=== PATIENT | female | born 1940 | race Caucasian/White ===

== ENCOUNTER → 2021-08-16 | Outpatient (CLI) | payer MEDICARE, MEDICAID ==
[~2021-08-16] VITALS: Ht 160 cm; Wt 68.0 kg
[~2021-08-16] MED LIST: CHOL200031 PO; CITA20TA9 PO; CLOP75TA28 PO; DIPH-506 PO; FURO1TAB33 PO; LACT10SO70 PO; LEVO100T3 PO; MULT-681 PO; NAPR500T31 PO; RALO60TA10 PO; SIMV-13 PO; VIT B12 PO; ZOLP5TAB PO
[2021-08-16 12:03] LABS: Urine Blood TRACE /uL (Negative); Urine Specific Gravity 1.012 (1.001-1.035)
[2021-08-16 12:38] LABS: Basophils # (auto) 0.1 10 ^3/uL (0-0.2); Basophils % (auto) 0.6 % (0.0-2.0); Eosinophils # (auto) 0.6 10 ^3/uL (0-0.8); Eosinophils % (auto) 6.9 % (0.0-7.0); Hematocrit 39.2 % (36.0-46.0); Hemoglobin 12.9 g/dL (12.2-16.2); Lymphocytes # (auto) 1.4 10 ^3/uL (0.4-5.4); Lymphocytes % (auto) 15.9 % (10.0-50.0); Mean Corpuscular Hemoglobin 30.2 pg (28.0-32.0); Mean Corpuscular Hgb Conc. 32.8 g/dL (32.0-36.0); Mean Corpuscular Volume 92.2 fL (80.0-100.0); Monocytes # (auto) 0.7 10 ^3/uL (0-1.3); Monocytes % (auto) 7.4 % (0.0-12.0); Neutrophils # (auto) 6.2 10 ^3/uL (1.6-8.6); Neutrophils % (auto) 69.2 % (37.0-80.0); Red Blood Cells 4.26 10^6/uL (4.0-5.20); Red Cell Distribution Width 14.1 % (11.8-14.3); White Blood Cell 8.9 10^3/uL (4.4-10.8)
[2021-08-16 13:00] LABS: Potassium 4.7 mmol/L (3.5-5.1)
[2021-08-16 13:18] LABS: Albumin 3.3 g/dL (3.4-5.0); BUN/Creatinine Ratio 15.5; Bilirubin, Total 0.6 mg/dL (0.2-1.0); Calcium 8.8 mg/dL (8.5-10.1); Total Protein 6.7 g/dL (6.4-8.2)
== END | disposition home or self-care (01) ==
LOC: SUR 09:26 → GI 08-17 12:26 → EDSTATUS 08-17 14:00
PROVIDERS: ATTEND Internal Medicine Gastroenterology
DX: R15.9 Full incontinence of feces (principal); R10.13 Epigastric pain; Z20.822 Contact with and (suspected) exposure to COVID-19; M81.0 Age-related osteoporosis without current pathological fracture; F32.9 Major depressive disorder, single episode, unspecified; E03.9 Hypothyroidism, unspecified; Z85.818 Personal history of malignant neoplasm of other sites of lip, oral cavity, and pharynx
CPT/HCPCS: 36415; 80053; 81003; 85025; U0003

== ENCOUNTER → 2021-09-14 | Day surgery (SDC) | payer MEDICARE, MEDICAID ==
[2021-09-12 14:18] LABS: Basophils # (auto) 0.1 10 ^3/uL (0-0.2); Basophils % (auto) 0.7 % (0.0-2.0); Eosinophils # (auto) 0.4 10 ^3/uL (0-0.8); Eosinophils % (auto) 5.4 % (0.0-7.0); Hematocrit 37.9 % (36.0-46.0); Hemoglobin 12.6 g/dL (12.2-16.2); Lymphocytes # (auto) 1.1 10 ^3/uL (0.4-5.4); Mean Corpuscular Hemoglobin 30.6 pg (28.0-32.0); Mean Corpuscular Hgb Conc. 33.2 g/dL (32.0-36.0); Mean Corpuscular Volume 92.2 fL (80.0-100.0); Monocytes # (auto) 0.6 10 ^3/uL (0-1.3); Monocytes % (auto) 7.8 % (0.0-12.0); Neutrophils # (auto) 5.9 10 ^3/uL (1.6-8.6); Neutrophils % (auto) 72.1 % (37.0-80.0); Nucleated Red Blood Cells % 0.1 %; Red Blood Cells 4.11 10^6/uL (4.0-5.20); White Blood Cell 8.2 10^3/uL (4.4-10.8)
[2021-09-12 14:33] LABS: INR 0.99 (0.9-1.15); Partial Thromboplastin Time 27.8 sec (23.6-33.0)
[2021-09-12 14:52] LABS: Albumin 3.3 g/dL (3.4-5.0); BUN/Creatinine Ratio 14.7; Bilirubin, Total 0.4 mg/dL (0.2-1.0); Calcium 8.9 mg/dL (8.5-10.1); Total Protein 6.7 g/dL (6.4-8.2)
[~2021-09-14] VITALS: Ht 160 cm; Wt 68.0 kg
[~2021-09-14] MED LIST changes: +DexAMETHasone SOD PHOS 10MG/1ML VIAL INJ ONE; -FURO1TAB33 PO; +LIDOCAINE VISCOUS 2% 15ML UD ONE; +MIDAZOLAM HCL 2MG/2ML 2ml VIAL (1mg/ml) ONE; -NAPR500T31 PO; +ONDANSETRON HCL 4 MG/2 ML VIAL ONE; +PROPOFOL 10 MG/ML 20 ML IV ONE; -SIMV-13 PO; +SODIUM CHLORIDE LOCK 10 ML ONE; -ZOLP5TAB PO; +fentaNYL CITRATE 100 MCG/2 ML VL ONE
[2021-09-14 11:45] VITALS: BP 163/63
== END | disposition home or self-care (01) ==
LOC: GI 09:01
PROVIDERS: ATTEND Internal Medicine Gastroenterology
DX: R13.10 Dysphagia, unspecified (principal); K29.50 Unspecified chronic gastritis without bleeding; K22.2 Esophageal obstruction; I13.0 Hypertensive heart and chronic kidney disease with heart failure and stage 1 through stage 4 chronic kidney disease, or unspecified chronic kidney disease; N18.4 Chronic kidney disease, stage 4 (severe); I20.9 Angina pectoris, unspecified; E03.9 Hypothyroidism, unspecified; F32.A Depression, unspecified; J44.9 Chronic obstructive pulmonary disease, unspecified; F41.9 Anxiety disorder, unspecified; F17.200 Nicotine dependence, unspecified, uncomplicated; E78.5 Hyperlipidemia, unspecified; Z86.73 Personal history of transient ischemic attack (TIA), and cerebral infarction without residual deficits; Z85.818 Personal history of malignant neoplasm of other sites of lip, oral cavity, and pharynx; Z90.89 Acquired absence of other organs; Z98.890 Other specified postprocedural states; Z79.899 Other long term (current) drug therapy; Z91.048 Other nonmedicinal substance allergy status; Z20.822 Contact with and (suspected) exposure to COVID-19; Z82.5 Family history of asthma and other chronic lower respiratory diseases
CPT/HCPCS: 36415; 43239; 43450; 80053; 85025; 85610; 85730; 88305; 88342; J1100; J2250; J2405; J2704; J3010; J7030; U0003; G0500

== ENCOUNTER 2023-04-15 16:41 | Emergency (ER) | payer MEDICARE, MEDICAID ==
[~2023-04-15] VITALS: Ht 160 cm; Wt 64.8 kg
[~2023-04-15 16:41] MED LIST changes: -DIPH-506 PO; +DIPH-562 PO; -DexAMETHasone SOD PHOS 10MG/1ML VIAL INJ ONE; -LIDOCAINE VISCOUS 2% 15ML UD ONE; -MIDAZOLAM HCL 2MG/2ML 2ml VIAL (1mg/ml) ONE; -ONDANSETRON HCL 4 MG/2 ML VIAL ONE; -PROPOFOL 10 MG/ML 20 ML IV ONE; -SODIUM CHLORIDE LOCK 10 ML ONE; -fentaNYL CITRATE 100 MCG/2 ML VL ONE
[2023-04-15 18:41] LABS: Basophils # (auto) 0.1 10 ^3/uL (0-0.2); Basophils % (auto) 0.5 % (0.0-2.0); Eosinophils # (auto) 0.5 10 ^3/uL (0-0.8); Eosinophils % (auto) 4.8 % (0.0-7.0); Hematocrit 36.8 % (36.0-46.0); Hemoglobin 11.8 g/dL (12.2-16.2); Lymphocytes # (auto) 1.3 10 ^3/uL (0.4-5.4); Lymphocytes % (auto) 12.5 % (10.0-50.0); Mean Corpuscular Volume 93.5 fL (80.0-100.0); Monocytes # (auto) 0.8 10 ^3/uL (0-1.3); Monocytes % (auto) 7.7 % (0.0-12.0); Neutrophils # (auto) 7.6 10 ^3/uL (1.6-8.6); Neutrophils % (auto) 74.5 % (37.0-80.0); Red Blood Cells 3.93 10^6/uL (4.0-5.20); Red Cell Distribution Width 14.2 % (11.8-14.3); White Blood Cell 10.1 10^3/uL (4.4-10.8)
[2023-04-15 18:52] LABS: Alanine Aminotransferase 16 U/L (7-40); Albumin 3.8 g/dL (3.2-4.8); Alkaline Phosphatase 53 U/L (46-116); Anion Gap 8 (5-15); Aspartate Aminotransferase 22 U/L (13-40); BUN/Creatinine Ratio 15.3 (10.0-20.0); Blood Urea Nitrogen 33 mg/dL (9-23); Calcium 9.2 mg/dL (8.5-10.1); Carbon Dioxide 25 mmol/L (20-30); Chloride 112 mmol/L (98-107); Glucose 84 mg/dL (74-106); Potassium 4.4 mmol/L (3.5-5.1); Sodium 145 mmol/L (136-145)
[2023-04-15 18:53] LABS: Bilirubin, Total 0.4 mg/dL (0.2-1.0); Total Protein 6.2 g/dL (5.7-8.2)
[2023-04-15] MEDS ORDERED: DexAMETHasone SOD PHOS 10MG/1ML VIAL INJ IM ONE (20:15)
[2023-04-15] MEDS ORDERED: cefTRIAXone SOD 1,000 MG VL IM ONE (20:15)
[2023-04-15] MEDS ORDERED: AMOX875T4 PO (20:49)
[2023-04-15 21:02] VITALS: BP 189/77; PULSE 88; RESP 22; TEMP 98.7; O2SAT 95
== END 2023-04-15 21:04 | disposition home or self-care (01) ==
LOC: ER 16:41
DX: J18.9 Pneumonia, unspecified organism (principal); F17.210 Nicotine dependence, cigarettes, uncomplicated; J44.9 Chronic obstructive pulmonary disease, unspecified; F32.9 Major depressive disorder, single episode, unspecified; E78.5 Hyperlipidemia, unspecified; I11.0 Hypertensive heart disease with heart failure; I50.89 Other heart failure; Z98.890 Other specified postprocedural states
CPT/HCPCS: 36415; 71046; 80053; 83605; 83880; 84484; 85025; 87040; 93005; 96372; 99285; J0696; J1100

== ENCOUNTER → 2023-10-17 | Day surgery (SDC) | payer MEDICARE, MEDICAID ==
[2023-10-10 12:11] LABS: Basophils # (auto) 0 10 ^3/uL (0-0.2); Basophils % (auto) 0.4 % (0.0-2.0); Eosinophils # (auto) 0.4 10 ^3/uL (0-0.8); Eosinophils % (auto) 4.5 % (0.0-7.0); Hematocrit 34.5 % (36.0-46.0); Hemoglobin 11.4 g/dL (12.2-16.2); Lymphocytes # (auto) 1.6 10 ^3/uL (0.4-5.4); Lymphocytes % (auto) 18.1 % (10.0-50.0); Mean Corpuscular Hemoglobin 30.8 pg (28.0-32.0); Mean Corpuscular Hgb Conc. 33.2 g/dL (32.0-36.0); Monocytes # (auto) 0.7 10 ^3/uL (0-1.3); Monocytes % (auto) 7.5 % (0.0-12.0); Neutrophils # (auto) 6.1 10 ^3/uL (1.6-8.6); Neutrophils % (auto) 69.5 % (37.0-80.0); Red Blood Cells 3.71 10^6/uL (4.0-5.20); Red Cell Distribution Width 14.9 % (11.8-14.3); White Blood Cell 8.7 10^3/uL (4.4-10.8)
[2023-10-10 12:22] LABS: INR 0.95 (0.9-1.15); Partial Thromboplastin Time 30.7 SEC (24.5-34.5)
[2023-10-10 12:31] LABS: Urine Bacteria FEW /hpf (None Seen); Urine Blood Negative /uL (Negative); Urine Clarity Clear (Clear); Urine Color Light-Yellow (Yellow); Urine Hyaline Cast FEW /lpf (0 - 2); Urine Mucus FEW (None Seen); Urine Protein, UAD 1+ (Negative); Urine Specific Gravity 1.013 (1.001-1.035); Urine Urobilinogen Normal (Negative); Urine WBC 3 /hpf (0 - 5)
[2023-10-10 12:51] LABS: Alanine Aminotransferase 12 U/L (7-40); Albumin 3.9 g/dL (3.2-4.8); Alkaline Phosphatase 60 U/L (46-116); Anion Gap 10 (5-15); Aspartate Aminotransferase 19 U/L (13-40); BUN/Creatinine Ratio 14.3 (10.0-20.0); Bilirubin, Total 0.5 mg/dL (0.2-1.0); Blood Urea Nitrogen 36 mg/dL (9-23); Carbon Dioxide 17 mmol/L (20-30); Chloride 113 mmol/L (98-107); Glucose 88 mg/dL (74-106); Potassium 5.3 mmol/L (3.5-5.1); Sodium 140 mmol/L (136-145); Total Protein 6.2 g/dL (5.7-8.2)
[~2023-10-17] VITALS: Ht 157.5 cm; Wt 59.9 kg
[~2023-10-17] MED LIST changes: +ALBU0.08 HHN; +AMLO1TAB23 PO; -DIPH-562 PO; +DexAMETHasone SOD PHOS 10MG/1ML VIAL INJ ONE; -LACT10SO70 PO; -LEVO100T3 PO; +LEVO112C3 PO; +MIDAZOLAM HCL 2MG/2ML 2ml VIAL (1mg/ml) ONE; -MULT-681 PO; +PROPOFOL 10 MG/ML 20 ML IV ONE; -VIT B12 PO; +fentaNYL CITRATE 100 MCG/2 ML VL ONE
[2023-10-17 12:15] VITALS: TEMP 97.6; O2SAT 99
[2023-10-17 12:45] VITALS: BP 147/51; PULSE 62; RESP 15; O2SAT 96
== END | disposition home or self-care (01) ==
LOC: GI 09:04
PROVIDERS: ATTEND Internal Medicine Gastroenterology
DX: R13.10 Dysphagia, unspecified (principal); K29.50 Unspecified chronic gastritis without bleeding; K21.9 Gastro-esophageal reflux disease without esophagitis; K44.9 Diaphragmatic hernia without obstruction or gangrene; I25.10 Atherosclerotic heart disease of native coronary artery without angina pectoris; I25.2 Old myocardial infarction; I12.9 Hypertensive chronic kidney disease with stage 1 through stage 4 chronic kidney disease, or unspecified chronic kidney disease; N18.4 Chronic kidney disease, stage 4 (severe); J44.9 Chronic obstructive pulmonary disease, unspecified; E06.3 Autoimmune thyroiditis; E89.0 Postprocedural hypothyroidism; M81.0 Age-related osteoporosis without current pathological fracture; F32.A Depression, unspecified; Z79.890 Hormone replacement therapy; Z79.899 Other long term (current) drug therapy; Z85.89 Personal history of malignant neoplasm of other organs and systems; Z98.84 Bariatric surgery status; Z87.11 Personal history of peptic ulcer disease; Z86.73 Personal history of transient ischemic attack (TIA), and cerebral infarction without residual deficits; Z98.890 Other specified postprocedural states
CPT/HCPCS: 36415; 43239; 43248; 80053; 81001; 85025; 85610; 85730; 88305; 88312; 88342; J1100; J2250; J2704; J3010; J7030

== ENCOUNTER 2023-10-24 08:15 | Day surgery (SDC) | payer MEDICARE, MEDICAID ==
[2023-10-23 15:04] LABS: Basophils # (auto) 0 10 ^3/uL (0-0.2); Basophils % (auto) 0.6 % (0.0-2.0); Eosinophils # (auto) 0.5 10 ^3/uL (0-0.8); Eosinophils % (auto) 5.7 % (0.0-7.0); Hematocrit 35.5 % (36.0-46.0); Hemoglobin 11.4 g/dL (12.2-16.2); Lymphocytes # (auto) 1.1 10 ^3/uL (0.4-5.4); Lymphocytes % (auto) 13.6 % (10.0-50.0); Mean Corpuscular Hemoglobin 29.6 pg (28.0-32.0); Mean Corpuscular Hgb Conc. 32.1 g/dL (32.0-36.0); Mean Corpuscular Volume 92.1 fL (80.0-100.0); Monocytes # (auto) 0.7 10 ^3/uL (0-1.3); Neutrophils # (auto) 5.7 10 ^3/uL (1.6-8.6); Neutrophils % (auto) 71.1 % (37.0-80.0); Red Blood Cells 3.86 10^6/uL (4.0-5.20); Red Cell Distribution Width 14.7 % (11.8-14.3)
[2023-10-23 15:19] LABS: INR 0.94 (0.9-1.15); Partial Thromboplastin Time 27.3 SEC (24.5-34.5)
[2023-10-23 15:21] LABS: Alanine Aminotransferase < 9 U/L (7-40); Albumin 3.8 g/dL (3.2-4.8); Alkaline Phosphatase 63 U/L (46-116); Anion Gap 6 (5-15); Aspartate Aminotransferase 21 U/L (13-40); BUN/Creatinine Ratio 14.4 (10.0-20.0); Bilirubin, Total 0.3 mg/dL (0.2-1.0); Blood Urea Nitrogen 39 mg/dL (9-23); Calcium 9.2 mg/dL (8.5-10.1); Carbon Dioxide 22 mmol/L (20-30); Chloride 112 mmol/L (98-107); Glucose 102 mg/dL (74-106); Potassium 5.1 mmol/L (3.5-5.1); Sodium 140 mmol/L (136-145); Total Protein 6.7 g/dL (5.7-8.2)
[~2023-10-24] VITALS: Ht 157.5 cm; Wt 59.9 kg
[~2023-10-24 08:15] MED LIST changes: -DexAMETHasone SOD PHOS 10MG/1ML VIAL INJ ONE; -MIDAZOLAM HCL 2MG/2ML 2ml VIAL (1mg/ml) ONE; -PROPOFOL 10 MG/ML 20 ML IV ONE; -fentaNYL CITRATE 100 MCG/2 ML VL ONE
[2023-10-24 08:17] LABS: Urine Bacteria None Seen /hpf (None Seen)
[2023-10-24 08:46] LABS: Urine Blood TRACE /uL (Negative); Urine Clarity Clear (Clear); Urine Color Light-Yellow (Yellow); Urine Protein, UAD TRACE (Negative); Urine Specific Gravity 1.009 (1.001-1.035); Urine Urobilinogen Normal (Negative); Urine WBC 8 /hpf (0 - 5)
[2023-10-24] MEDS ORDERED: LIDOCAINE VISCOUS 2% 15ML UD ONE (09:53)
[2023-10-24] MEDS ORDERED: fentaNYL CITRATE 100 MCG/2 ML VL ONE (09:55)
[2023-10-24] MEDS ORDERED: MIDAZOLAM HCL 2MG/2ML 2ml VIAL (1mg/ml) ONE (09:55)
[2023-10-24] MEDS ORDERED: PROPOFOL 10 MG/ML 20 ML IV ONE (10:05)
[2023-10-24] MEDS ORDERED: DexAMETHasone SOD PHOS 10MG/1ML VIAL INJ ONE (10:05)
[2023-10-24 10:10] VITALS: PULSE 62; RESP 14; TEMP 97; O2SAT 97
[2023-10-24 10:55] VITALS: BP 174/58; PULSE 58; RESP 17
== END 2023-10-24 11:05 | disposition home or self-care (01) ==
LOC: GI 08:15
PROVIDERS: ATTEND Internal Medicine Gastroenterology
DX: R13.10 Dysphagia, unspecified (principal); K29.70 Gastritis, unspecified, without bleeding; K22.10 Ulcer of esophagus without bleeding; E89.0 Postprocedural hypothyroidism; M81.0 Age-related osteoporosis without current pathological fracture; I25.2 Old myocardial infarction; F32.A Depression, unspecified; F17.210 Nicotine dependence, cigarettes, uncomplicated; Z79.890 Hormone replacement therapy; Z79.899 Other long term (current) drug therapy; Z85.89 Personal history of malignant neoplasm of other organs and systems; Z90.3 Acquired absence of stomach [part of]; Z98.890 Other specified postprocedural states
CPT/HCPCS: 36415; 43235; 80053; 81001; 85025; 85610; 85730; J1100; J2250; J2704; J3010; J7030

== ENCOUNTER → 2023-11-04 | Outpatient (CLI) | payer MEDICARE, MEDICAID ==
[2023-11-04 09:16] LABS: Basophils # (auto) 0.1 10 ^3/uL (0-0.2); Basophils % (auto) 0.7 % (0.0-2.0); Eosinophils # (auto) 0.7 10 ^3/uL (0-0.8); Eosinophils % (auto) 6.4 % (0.0-7.0); Hematocrit 36.6 % (36.0-46.0); Hemoglobin 11.7 g/dL (12.2-16.2); Lymphocytes # (auto) 1.1 10 ^3/uL (0.4-5.4); Lymphocytes % (auto) 10.5 % (10.0-50.0); Mean Corpuscular Hemoglobin 30.1 pg (28.0-32.0); Mean Corpuscular Volume 94.2 fL (80.0-100.0); Monocytes # (auto) 0.6 10 ^3/uL (0-1.3); Monocytes % (auto) 6.2 % (0.0-12.0); Neutrophils % (auto) 76.2 % (37.0-80.0); Red Blood Cells 3.88 10^6/uL (4.0-5.20); Red Cell Distribution Width 15.5 % (11.8-14.3); White Blood Cell 10.5 10^3/uL (4.4-10.8)
[2023-11-04 10:32] LABS: Albumin 3.9 g/dL (3.2-4.8); Alkaline Phosphatase 66 U/L (46-116); Anion Gap 7 (5-15); Aspartate Aminotransferase 12 U/L (13-40); BUN/Creatinine Ratio 13.7 (10.0-20.0); Blood Urea Nitrogen 31 mg/dL (9-23); Calcium 9.8 mg/dL (8.5-10.1); Carbon Dioxide 22 mmol/L (20-30); Chloride 116 mmol/L (98-107); Glucose 88 mg/dL (74-106); LDL Cholesterol 113 mg/dL (< 100); Potassium 5.5 mmol/L (3.5-5.1); Sodium 145 mmol/L (136-145); Triglycerides 85 mg/dL (< 150)
[2023-11-04 10:33] LABS: Bilirubin, Total 0.3 mg/dL (0.2-1.0); Cholesterol 189 mg/dL (< 200); HDL Cholesterol 58 mg/dL (40-59); Total Protein 6.5 g/dL (5.7-8.2)
[2023-11-04 10:52] LABS: Alanine Aminotransferase < 9 U/L (7-40)
[2023-11-06 07:07] LABS: Urine Bacteria None Seen /hpf (None Seen)
[2023-11-06 07:44] LABS: Urine Blood Negative /uL (Negative); Urine Clarity Clear (Clear); Urine Color Colorless (Yellow); Urine Protein, UAD 1+ (Negative); Urine Specific Gravity 1.013 (1.001-1.035); Urine Urobilinogen Normal (Negative); Urine WBC 9 /hpf (0 - 5); Urine pH 5.5 (5.0-9.0)
== END | disposition home or self-care (01) ==
LOC: LAB 08:44
PROVIDERS: ATTEND Internal Medicine
DX: Z13.1 Encounter for screening for diabetes mellitus (principal); I12.9 Hypertensive chronic kidney disease with stage 1 through stage 4 chronic kidney disease, or unspecified chronic kidney disease; N18.4 Chronic kidney disease, stage 4 (severe); R13.10 Dysphagia, unspecified
CPT/HCPCS: 36415; 80053; 80061; 81001; 83036; 84439; 84443; 85025

== ENCOUNTER 2024-02-28 11:16 | Inpatient (IN) | payer MEDICARE, MEDICAID ==
[~2024-02-28] VITALS: Ht 160 cm; Wt 70.5 kg
[~2024-02-28 11:16] MED LIST changes: +CITA-73 PO
[2024-02-28 13:59] LABS: Basophils # (auto) 0 10 ^3/uL (0-0.2); Basophils % (auto) 0.3 % (0.0-2.0); Eosinophils # (auto) 0.1 10 ^3/uL (0-0.8); Hematocrit 36.7 % (36.0-46.0); Hemoglobin 11.9 g/dL (12.2-16.2); Lymphocytes # (auto) 0.5 10 ^3/uL (0.4-5.4); Lymphocytes % (auto) 4.1 % (10.0-50.0); Mean Corpuscular Hemoglobin 30.3 pg (28.0-32.0); Mean Corpuscular Hgb Conc. 32.3 g/dL (32.0-36.0); Mean Corpuscular Volume 93.7 fL (80.0-100.0); Monocytes # (auto) 0.7 10 ^3/uL (0-1.3); Monocytes % (auto) 5.7 % (0.0-12.0); Neutrophils # (auto) 10.2 10 ^3/uL (1.6-8.6); Neutrophils % (auto) 88.9 % (37.0-80.0); Platelet Count (auto) 236 10^3/uL (140-450); Red Blood Cells 3.92 10^6/uL (4.0-5.20); Red Cell Distribution Width 14.8 % (11.8-14.3); White Blood Cell 11.5 10^3/uL (4.4-10.8)
[2024-02-28 14:21] LABS: Alanine Aminotransferase 11 U/L (7-40); Albumin 3.9 g/dL (3.2-4.8); Alkaline Phosphatase 67 U/L (46-116); Anion Gap 5 (5-15); Aspartate Aminotransferase 16 U/L (13-40); BUN/Creatinine Ratio 12.2 (10.0-20.0); Bilirubin, Total 0.5 mg/dL (0.2-1.0); Blood Urea Nitrogen 39 mg/dL (9-23); Calcium 9.8 mg/dL (8.7-10.4); Carbon Dioxide 22 mmol/L (20-30); Chloride 111 mmol/L (98-107); Glucose 89 mg/dL (74-106); Sodium 138 mmol/L (136-145); Total Protein 6.6 g/dL (5.7-8.2)
[2024-02-28] MEDS: CALCIUM CHL 100MG/ML 500 MG in D5W 5% 100 ML IV ONE (14:30)
[2024-02-28] MEDS: DEXTROSE (50%) 50ML SYRG IV ONE (14:30)
[2024-02-28] MEDS: SODIUM BICARB 8.4% 50Meq/50ml SYR INJ IV ONE (14:30)
[2024-02-28] MEDS: InsuLIN REG 1unit/0.01ml Soln (100units/ml) IV ONE (14:30)
[2024-02-28] MEDS: SODIUM ZIRCONIUM CYCL 10 GM PAK PO ONE (14:30)
[2024-02-28 14:40] LABS: Erythrocyte Sedimentation Rate 28 mm/hr (0-20)
[2024-02-28] MEDS: ALBUTEROL SULF 2.5 MG/0.5ML(0.5%) NEB SOLN NEB ONE (15:02)
[2024-02-28] MEDS: cefTRIAXone 2GM/50ML D5W 50 ML IV ONE (16:30)
[2024-02-28 18:03] VITALS: PULSE 94; RESP 29; O2SAT 94
[2024-02-28 20:00] VITALS: PULSE 90; RESP 24; O2SAT 96
[2024-02-28] MEDS: NICOTINE 14 MG/24HR TOPICAL PATCH TD ONE (20:14)
[2024-02-28 20:38] LABS: Chloride 111 mmol/L (98-107); Potassium 4.4 mmol/L (3.5-5.1); Sodium 139 mmol/L (136-145)
[2024-02-28 20:39] LABS: Anion Gap 8 (5-15); Calcium 9.3 mg/dL (8.7-10.4); Carbon Dioxide 20 mmol/L (20-30)
[2024-02-28 20:44] LABS: Blood Urea Nitrogen 48 mg/dL (9-23); Glucose 119 mg/dL (74-106)
[2024-02-28] MEDS ORDERED: DOCUSATE SOD 100 MG CAP PO PRN (22:15)
[2024-02-28] MEDS ORDERED: HYDROcodone-ACET 5/325MG TAB PO PRN (22:15)
[2024-02-28] MEDS ORDERED: ACETAMINOPHEN 325 MG TAB PO PRN (22:15)
[2024-02-28] MEDS ORDERED: NITROGLYCERIN 0.4 MG SL TAB SL PRN (22:45)
[2024-02-28] MEDS ORDERED: MORPHINE SULFATE INJ 2 MG/ml SYRG IV PRN (22:45)
[2024-02-28 22:48] VITALS: BP 157/49; PULSE 88; RESP 22; TEMP 98.1; O2SAT 96
[2024-02-28 23:14] VITALS: O2SAT 96
[2024-02-28] MEDS: FUROSEMIDE 20 MG/2 ML VIAL IV ONE (23:16)
[2024-02-28] MEDS: DOXYCYCLINE 100MG/250ML 250 ML IV SCH (23:40)
[2024-02-28] MEDS: hydrALAZINE HCL 20 MG/ML VL IV PRN (23:57)
[2024-02-29] VITALS (12 sets, daily range): BP systolic 114–173; BP diastolic 57–66; PULSE 71–84; RESP 16–20; TEMP 98–99.1; O2SAT 90–99
[2024-02-29 03:05] LABS: Rapid Strep A Screen-Throat Negative
[2024-02-29] MEDS: SODIUM CHLOR 0.9% PF (SALINE LOCK) 10ML VIAL/SYR IV SCH (06:24)
[2024-02-29] MEDS: LEVOTHYROXINE SODIUM 112 MCG TAB PO SCH (06:25)
[2024-02-29 07:55] LABS: Basophils # (auto) 0 10 ^3/uL (0-0.2); Basophils % (auto) 0.3 % (0.0-2.0); Eosinophils # (auto) 0.1 10 ^3/uL (0-0.8); Eosinophils % (auto) 0.7 % (0.0-7.0); Hematocrit 31.9 % (36.0-46.0); Hemoglobin 10.7 g/dL (12.2-16.2); Lymphocytes # (auto) 0.5 10 ^3/uL (0.4-5.4); Lymphocytes % (auto) 4.1 % (10.0-50.0); Mean Corpuscular Hemoglobin 30.9 pg (28.0-32.0); Mean Corpuscular Hgb Conc. 33.6 g/dL (32.0-36.0); Monocytes # (auto) 0.8 10 ^3/uL (0-1.3); Monocytes % (auto) 7.5 % (0.0-12.0); Neutrophils # (auto) 9.8 10 ^3/uL (1.6-8.6); Neutrophils % (auto) 87.4 % (37.0-80.0); Nucleated Red Blood Cells % 0.1 %; Platelet Count (auto) 195 10^3/uL (140-450); Red Blood Cells 3.47 10^6/uL (4.0-5.20); Red Cell Distribution Width 14.4 % (11.8-14.3); White Blood Cell 11.2 10^3/uL (4.4-10.8)
[2024-02-29 08:43] LABS: Alanine Aminotransferase 12 U/L (7-40); Albumin 3.3 g/dL (3.2-4.8); Alkaline Phosphatase 60 U/L (46-116); Anion Gap 6 (5-15); Aspartate Aminotransferase 18 U/L (13-40); BUN/Creatinine Ratio 12.7 (10.0-20.0); Bilirubin, Total 0.3 mg/dL (0.2-1.0); Blood Urea Nitrogen 42 mg/dL (9-23); Carbon Dioxide 23 mmol/L (20-30); Chloride 109 mmol/L (98-107); Glucose 102 mg/dL (74-106); Potassium 4.7 mmol/L (3.5-5.1); Sodium 138 mmol/L (136-145); Total Protein 5.6 g/dL (5.7-8.2)
[2024-02-29] MEDS: cefTRIAXone 1GM/50ML D5W 50 ML IV SCH (09:10)
[2024-02-29] MEDS: FUROSEMIDE 20 MG/2 ML VIAL IV SCH (09:10)
[2024-02-29] MEDS: FAMOTIDINE (10MG/ML) 2ML VL IV SCH (09:15)
[2024-02-29] MEDS: CARVEDILOL 3.125 MG TAB PO SCH (09:16)
[2024-02-29] MEDS: ASPirin 81 mg TAB PO SCH (09:16)
[2024-02-29 11:47] LABS: Urine Bacteria None Seen /hpf (None Seen)
[2024-02-29 12:11] LABS: Protein, Urine 46.1 mg/dL (0.0-11.9)
[2024-02-29 12:13] LABS: Creatinine, Urine 29.2 mg/dL (30.0-125.0)
[2024-02-29 12:15] LABS: Amphetamine Screen, Urine Neg (NEGATIVE); Barbiturate Scree,Urine Neg (NEGATIVE); Benzodiazephine Screen, Urine Neg (NEGATIVE); Cannabinoid Screen, Urine Neg (NEGATIVE); Cocaine Screen, Urine Neg (NEGATIVE); Opiate Scree,Urine Neg (NEGATIVE); Phencyclidine Screen, Urine Neg (NEGATIVE)
[2024-02-29 12:16] LABS: Urine Blood 1+ /uL (Negative); Urine Clarity Clear (Clear); Urine Protein, UAD 1+ (Negative); Urine Specific Gravity 1.008 (1.001-1.035); Urine Urobilinogen Normal (Negative); Urine WBC 2 /hpf (0 - 5)
[2024-02-29 12:18] LABS: Urine Color Light-Yellow (Yellow)
[2024-02-29] MEDS: SOD CHL 0.45% 1,000 ML IV ONE (16:22)
[2024-02-29] MEDS: ACETAMINOPHEN 500 MG TAB PO PRN (17:14)
[2024-02-29 18:59] LABS: LDL Cholesterol 88 mg/dL (< 100); Triglycerides 77 mg/dL (< 150)
[2024-02-29 19:01] LABS: Cholesterol 157 mg/dL (< 200); HDL Cholesterol 48 mg/dL (40-59)
[2024-03-01] VITALS (11 sets, daily range): BP systolic 142–171; BP diastolic 44–64; PULSE 65–74; RESP 14–19; TEMP 97.3–98.5; O2SAT 94–98
[2024-03-01 06:47] LABS: Basophils # (auto) 0 10 ^3/uL (0-0.2); Basophils % (auto) 0.4 % (0.0-2.0); Eosinophils # (auto) 0.3 10 ^3/uL (0-0.8); Eosinophils % (auto) 3.2 % (0.0-7.0); Hematocrit 33.1 % (36.0-46.0); Hemoglobin 11.1 g/dL (12.2-16.2); Lymphocytes # (auto) 0.5 10 ^3/uL (0.4-5.4); Lymphocytes % (auto) 5.5 % (10.0-50.0); Mean Corpuscular Hemoglobin 30.7 pg (28.0-32.0); Mean Corpuscular Hgb Conc. 33.5 g/dL (32.0-36.0); Mean Corpuscular Volume 91.6 fL (80.0-100.0); Monocytes # (auto) 0.7 10 ^3/uL (0-1.3); Monocytes % (auto) 6.9 % (0.0-12.0); Neutrophils # (auto) 8.3 10 ^3/uL (1.6-8.6); Platelet Count (auto) 213 10^3/uL (140-450); Red Blood Cells 3.61 10^6/uL (4.0-5.20); Red Cell Distribution Width 14.2 % (11.8-14.3); White Blood Cell 9.9 10^3/uL (4.4-10.8)
[2024-03-01 06:57] LABS: Chloride 109 mmol/L (98-107); Potassium 4.3 mmol/L (3.5-5.1); Sodium 138 mmol/L (136-145)
[2024-03-01 06:58] LABS: Anion Gap 7 (5-15); Calcium 8.6 mg/dL (8.7-10.4); Carbon Dioxide 22 mmol/L (20-30)
[2024-03-01 07:03] LABS: BUN/Creatinine Ratio 13.9 (10.0-20.0); Blood Urea Nitrogen 42 mg/dL (9-23); Glucose 91 mg/dL (74-106)
[2024-03-01 07:37] LABS: Uric Acid 9.4 mg/dL (3.1-7.8)
[2024-03-01] MEDS: hydrALAZINE HCL 25 MG TAB PO SCH (13:42)
[2024-03-01] MEDS: CARVEDILOL 3.125 MG TAB PO SCH (21:43)
[2024-03-02] VITALS (13 sets, daily range): BP systolic 120–139; BP diastolic 37–57; PULSE 58–74; RESP 13–20; TEMP 97.2–98.3; O2SAT 92–98
[2024-03-02] MEDS: ALBUTEROL SULF 2.5 MG/0.5ML(0.5%) NEB SOLN NEB PRN (06:40)
[2024-03-02] MEDS: IPRATROPIUM BROM 0.5 MG/2.5ML INH SOL NEB PRN (06:41)
[2024-03-02] MEDS: Nepro With Carbsteady Vanilla 8oz Carton PO SCH (07:00)
[2024-03-02] MEDS: ISOSORBIDE MONONITRATE ER 60 MG TAB PO SCH (10:28)
[2024-03-02] MEDS: ONDANSETRON HCL 4 MG/2 ML VIAL IV PRN (10:30)
[2024-03-02] MEDS: MAGNESIUM SULFATE 1GM/100ML 100 ML IV ONE (11:26)
[2024-03-02 11:53] LABS: Basophils # (auto) 0 10 ^3/uL (0-0.2); Basophils % (auto) 0.4 % (0.0-2.0); Eosinophils # (auto) 0 10 ^3/uL (0-0.8); Eosinophils % (auto) 0.5 % (0.0-7.0); Hematocrit 35.4 % (36.0-46.0); Hemoglobin 11.5 g/dL (12.2-16.2); Lymphocytes # (auto) 0.5 10 ^3/uL (0.4-5.4); Lymphocytes % (auto) 6.4 % (10.0-50.0); Mean Corpuscular Hemoglobin 30.4 pg (28.0-32.0); Mean Corpuscular Hgb Conc. 32.6 g/dL (32.0-36.0); Mean Corpuscular Volume 93.2 fL (80.0-100.0); Monocytes # (auto) 0.4 10 ^3/uL (0-1.3); Monocytes % (auto) 5.7 % (0.0-12.0); Neutrophils # (auto) 6.7 10 ^3/uL (1.6-8.6); Nucleated Red Blood Cells % 0.1 %; Platelet Count (auto) 259 10^3/uL (140-450); Red Cell Distribution Width 14.5 % (11.8-14.3); White Blood Cell 7.8 10^3/uL (4.4-10.8)
[2024-03-02 12:00] LABS: Chloride 109 mmol/L (98-107); Potassium 5.1 mmol/L (3.5-5.1); Sodium 138 mmol/L (136-145)
[2024-03-02 12:01] LABS: Anion Gap 6 (5-15); Carbon Dioxide 23 mmol/L (20-30)
[2024-03-02 12:06] LABS: BUN/Creatinine Ratio 18.1 (10.0-20.0); Glucose 103 mg/dL (74-106)
[2024-03-02 12:12] LABS: Blood Urea Nitrogen 52 mg/dL (9-23)
[2024-03-02 13:05] LABS: Hepatitis B Surface Antigen Negative (Negative)
[2024-03-02 13:27] LABS: Hepatitis C Antibody Negative (Negative)
[2024-03-03] VITALS (11 sets, daily range): BP systolic 122–145; BP diastolic 41–62; PULSE 53–64; RESP 15–18; TEMP 97.4–98.1; O2SAT 90–97
[2024-03-03 06:57] LABS: Anion Gap 8 (5-15); Carbon Dioxide 20 mmol/L (20-30); Chloride 107 mmol/L (98-107); Potassium 4.6 mmol/L (3.5-5.1); Sodium 135 mmol/L (136-145)
[2024-03-03 06:59] LABS: Calcium 8.6 mg/dL (8.7-10.4)
[2024-03-03 07:03] LABS: BUN/Creatinine Ratio 14.5 (10.0-20.0); Blood Urea Nitrogen 48 mg/dL (9-23); Glucose 94 mg/dL (74-106)
[2024-03-03] MEDS: LACTATED RINGER'S 1,000 ML IV SCH (10:30)
[2024-03-04] VITALS (11 sets, daily range): BP systolic 132–143; BP diastolic 40–52; PULSE 55–64; RESP 16–20; TEMP 97.6–98.4; O2SAT 92–100
[2024-03-05] VITALS (10 sets, daily range): BP systolic 130–162; BP diastolic 40–54; PULSE 54–64; RESP 18–21; TEMP 97.9–98.9; O2SAT 92–98
[2024-03-05] MEDS: DOXYCYCLINE 100 MG TAB/CAP PO SCH (23:11)
[2024-03-06 05:00] VITALS: BP 141/57; PULSE 64; RESP 19; TEMP 98.8; O2SAT 95
[2024-03-06 06:41] LABS: Calcium 9.4 mg/dL (8.7-10.4); Chloride 116 mmol/L (98-107); Sodium 141 mmol/L (136-145)
[2024-03-06 06:42] LABS: Anion Gap 5 (5-15); Carbon Dioxide 20 mmol/L (20-30)
[2024-03-06 06:47] LABS: BUN/Creatinine Ratio 15.5 (10.0-20.0); Blood Urea Nitrogen 47 mg/dL (9-23); Glucose 93 mg/dL (74-106)
[2024-03-06 08:00] VITALS: BP 173/57; PULSE 60; PULSE 61; RESP 18; TEMP 98.5; O2SAT 96
[2024-03-06] MEDS ORDERED: DOXY100C79 PO (11:30)
[2024-03-06 13:04] VITALS: BP 173/57; PULSE 61; TEMP 36.9
[2024-03-06 13:07] VITALS: BP 165/54; PULSE 61; RESP 17; TEMP 97.7; O2SAT 95
== END 2024-03-06 14:30 | disposition home or self-care (01) | DRG 871 ==
LOC: ER 11:16 → TELE-WESTW 22:45 → TELE 22:45 → TELE-WESTW 02-29 03:15
PROVIDERS: ADMIT Nurse Practitioner Family; ATTEND Family Medicine
PROC: 05HC33Z Insertion of Infusion Device into Left Basilic Vein, Percutaneous Approach (ICD-10-PCS; principal; 2024-03-02)
PROC: B54NZZA Ultrasonography of Left Upper Extremity Veins, Guidance (ICD-10-PCS; 2024-03-02)
DX: A41.9 Sepsis, unspecified organism (principal); I50.23 Acute on chronic systolic (congestive) heart failure; J96.01 Acute respiratory failure with hypoxia; J18.9 Pneumonia, unspecified organism; I13.2 Hypertensive heart and chronic kidney disease with heart failure and with stage 5 chronic kidney disease, or end stage renal disease; J05.10 Acute epiglottitis without obstruction; N17.9 Acute kidney failure, unspecified; N18.5 Chronic kidney disease, stage 5; J44.1 Chronic obstructive pulmonary disease with (acute) exacerbation; F17.210 Nicotine dependence, cigarettes, uncomplicated; E87.5 Hyperkalemia; E78.00 Pure hypercholesterolemia, unspecified; I25.10 Atherosclerotic heart disease of native coronary artery without angina pectoris; F32.A Depression, unspecified; E03.9 Hypothyroidism, unspecified; Z86.73 Personal history of transient ischemic attack (TIA), and cerebral infarction without residual deficits; Z85.819 Personal history of malignant neoplasm of unspecified site of lip, oral cavity, and pharynx; Z91.09 Other allergy status, other than to drugs and biological substances; Z79.899 Other long term (current) drug therapy; Z91.048 Other nonmedicinal substance allergy status; Z92.3 Personal history of irradiation; Z92.21 Personal history of antineoplastic chemotherapy; Z87.11 Personal history of peptic ulcer disease; Z91.158 Patient's noncompliance with renal dialysis for other reason
CPT/HCPCS: 36415; 70450; 70490; 71045; 73502; 76775; 80048; 80053; 80061; 80307; 81001; 82570; 82962; 83605; 83735; 83880; 84100; 84156; 84300; 84443; 84484; 84550; 85025; 85652; 86141; 86803; 87070; 87340; 87880; 93005; 93306; 94640; 97110; 97116; 97163; 97530; 99291; G0378; J1815; J2405; J3490; J7060

== ENCOUNTER 2024-03-19 14:23 | Inpatient (IN) | payer MEDICARE, MEDICAID ==
[~2024-03-19] VITALS: Ht 160 cm; Wt 57.3 kg
[~2024-03-19 14:23] MED LIST changes: -CITA20TA9 PO; +DOXY100C79 PO
[2024-03-19 15:39] LABS: Basophils # (auto) 0.1 10 ^3/uL (0-0.2); Basophils % (auto) 0.9 % (0.0-2.0); Eosinophils # (auto) 0.2 10 ^3/uL (0-0.8); Eosinophils % (auto) 1.8 % (0.0-7.0); Hematocrit 31.9 % (36.0-46.0); Hemoglobin 10.1 g/dL (12.2-16.2); Lymphocytes # (auto) 1.3 10 ^3/uL (0.4-5.4); Lymphocytes % (auto) 12.6 % (10.0-50.0); Mean Corpuscular Hemoglobin 29.6 pg (28.0-32.0); Mean Corpuscular Hgb Conc. 31.8 g/dL (32.0-36.0); Monocytes # (auto) 0.7 10 ^3/uL (0-1.3); Neutrophils # (auto) 8.2 10 ^3/uL (1.6-8.6); Neutrophils % (auto) 77.7 % (37.0-80.0); Platelet Count (auto) 229 10^3/uL (140-450); Red Blood Cells 3.43 10^6/uL (4.0-5.20); Red Cell Distribution Width 15.7 % (11.8-14.3); White Blood Cell 10.6 10^3/uL (4.4-10.8)
[2024-03-19 15:52] LABS: Chloride 119 mmol/L (98-107); Sodium 142 mmol/L (136-145)
[2024-03-19 15:53] LABS: Anion Gap 4 (5-15); Carbon Dioxide 19 mmol/L (20-31)
[2024-03-19 15:54] LABS: Calcium 9.7 mg/dL (8.7-10.4)
[2024-03-19 15:58] LABS: Glucose 93 mg/dL (74-106)
[2024-03-19 15:59] LABS: BUN/Creatinine Ratio 22.3 (10.0-20.0); Blood Urea Nitrogen 63 mg/dL (9-23)
[2024-03-19 17:20] VITALS: PULSE 61; RESP 14; O2SAT 94
[2024-03-19] MEDS: CALCIUM GLUC 1,000mg/50ml-NS 50 ML IV ONE (17:35)
[2024-03-19] MEDS: FUROSEMIDE 20 MG/2 ML VIAL IV ONE (17:40)
[2024-03-19] MEDS: DEXTROSE (50%) 50ML SYRG IV ONE (17:40)
[2024-03-19] MEDS: SODIUM BICARB 8.4% 50Meq/50ml SYR INJ IV ONE (17:40)
[2024-03-19] MEDS: SODIUM ZIRCONIUM CYCL 10 GM PAK PO ONE (17:40)
[2024-03-19] MEDS: InsuLIN REG 1unit/0.01ml Soln (100units/ml) IV ONE (17:41)
[2024-03-19] MEDS: ALBUTEROL SULF 2.5 MG/0.5ML(0.5%) NEB SOLN NEB ONE (17:59)
[2024-03-19 19:08] LABS: Urine Bacteria FEW /hpf (None Seen); Urine Blood TRACE /uL (Negative); Urine Clarity Clear (Clear); Urine Color Light-Yellow (Yellow); Urine Protein, UAD 1+ (Negative); Urine Specific Gravity 1.011 (1.001-1.035); Urine Urobilinogen Normal (Negative); Urine WBC 19 /hpf (0 - 5)
[2024-03-19 19:40] VITALS: PULSE 77; RESP 17; O2SAT 94
[2024-03-19] MEDS ORDERED: ONDANSETRON HCL 4 MG/2 ML VIAL IV PRN (21:45)
[2024-03-19] MEDS ORDERED: DOCUSATE SOD 100 MG CAP PO PRN (21:45)
[2024-03-19] MEDS: SODIUM CHLOR 0.9% PF (SALINE LOCK) 10ML VIAL/SYR IV SCH (22:02)
[2024-03-19] MEDS: cefTRIAXone 1GM/50ML D5W 50 ML IV ONE (22:09)
[2024-03-19] MEDS ORDERED: MORPHINE SULFATE INJ 2 MG/ml SYRG IV PRN (23:00)
[2024-03-19] MEDS ORDERED: NITROGLYCERIN 0.4 MG SL TAB SL PRN (23:00)
[2024-03-20] VITALS (12 sets, daily range): BP systolic 125–174; BP diastolic 40–62; PULSE 65–78; RESP 13–18; TEMP 97.5–98.7; O2SAT 93–99
[2024-03-20] MEDS: hydrALAZINE HCL 20 MG/ML VL IV PRN (02:02)
[2024-03-20] MEDS: LEVOTHYROXINE SODIUM 112 MCG TAB PO SCH (06:03)
[2024-03-20] MEDS: cefTRIAXone 1GM/50ML D5W 50 ML IV SCH (10:59)
[2024-03-20] MEDS: ASPirin 81 mg TAB PO SCH (10:59)
[2024-03-20] MEDS: FUROSEMIDE 20 MG/2 ML VIAL IV SCH (11:00)
[2024-03-20 11:32] LABS: Basophils # (auto) 0.1 10 ^3/uL (0-0.2); Basophils % (auto) 0.4 % (0.0-2.0); Eosinophils # (auto) 0.1 10 ^3/uL (0-0.8); Eosinophils % (auto) 0.5 % (0.0-7.0); Hematocrit 29.3 % (36.0-46.0); Hemoglobin 9.3 g/dL (12.2-16.2); Lymphocytes # (auto) 0.8 10 ^3/uL (0.4-5.4); Lymphocytes % (auto) 5.8 % (10.0-50.0); Mean Corpuscular Hemoglobin 29.9 pg (28.0-32.0); Mean Corpuscular Hgb Conc. 31.8 g/dL (32.0-36.0); Mean Corpuscular Volume 94.1 fL (80.0-100.0); Monocytes # (auto) 0.8 10 ^3/uL (0-1.3); Monocytes % (auto) 5.8 % (0.0-12.0); Neutrophils # (auto) 11.4 10 ^3/uL (1.6-8.6); Neutrophils % (auto) 87.5 % (37.0-80.0); Nucleated Red Blood Cells % 0.1 %; Platelet Count (auto) 185 10^3/uL (140-450); Red Blood Cells 3.12 10^6/uL (4.0-5.20); Red Cell Distribution Width 15.6 % (11.8-14.3)
[2024-03-20 11:51] LABS: Alkaline Phosphatase 74 U/L (46-116); Anion Gap 7 (5-15); Aspartate Aminotransferase 16 U/L (13-40); BUN/Creatinine Ratio 17.8 (10.0-20.0); Bilirubin, Total 0.4 mg/dL (0.2-1.0); Calcium 9.6 mg/dL (8.7-10.4); Carbon Dioxide 19 mmol/L (20-31); Chloride 117 mmol/L (98-107); Glucose 100 mg/dL (74-106); Sodium 143 mmol/L (136-145)
[2024-03-20 11:52] LABS: Total Protein 5.4 g/dL (5.7-8.2)
[2024-03-20 11:53] LABS: Alanine Aminotransferase < 9 U/L (7-40); Blood Urea Nitrogen 49 mg/dL (9-23)
[2024-03-20 11:56] LABS: Potassium 5.8 mmol/L (3.5-5.1)
[2024-03-20] MEDS: SODIUM ZIRCONIUM CYCL 10 GM PAK PO SCH (19:11)
[2024-03-20] MEDS: SODIUM CHLORIDE 0.9% 1,000 ML IV ONE (19:13)
[2024-03-20 21:46] LABS: Alanine Aminotransferase < 9 U/L (7-40); Alkaline Phosphatase 77 U/L (46-116); Anion Gap 4 (5-15); Aspartate Aminotransferase 15 U/L (13-40); BUN/Creatinine Ratio 19.4 (10.0-20.0); Bilirubin, Total 0.3 mg/dL (0.2-1.0); Blood Urea Nitrogen 55 mg/dL (9-23); Calcium 9.6 mg/dL (8.7-10.4); Carbon Dioxide 21 mmol/L (20-31); Chloride 114 mmol/L (98-107); Glucose 84 mg/dL (74-106); Potassium 5.4 mmol/L (3.5-5.1); Sodium 139 mmol/L (136-145); Total Protein 5.4 g/dL (5.7-8.2)
[2024-03-21] VITALS (9 sets, daily range): BP systolic 115–188; BP diastolic 48–72; PULSE 55–77; RESP 12–20; TEMP 97.5–98.2; O2SAT 94–97
[2024-03-21 07:04] LABS: Urine Bacteria None Seen /hpf (None Seen)
[2024-03-21 07:06] LABS: Basophils # (auto) 0.1 10 ^3/uL (0-0.2); Basophils % (auto) 0.7 % (0.0-2.0); Eosinophils # (auto) 0.2 10 ^3/uL (0-0.8); Eosinophils % (auto) 2.9 % (0.0-7.0); Hematocrit 28.1 % (36.0-46.0); Hemoglobin 9.2 g/dL (12.2-16.2); Lymphocytes # (auto) 1.1 10 ^3/uL (0.4-5.4); Lymphocytes % (auto) 12.5 % (10.0-50.0); Mean Corpuscular Hgb Conc. 32.6 g/dL (32.0-36.0); Monocytes # (auto) 0.8 10 ^3/uL (0-1.3); Monocytes % (auto) 9.1 % (0.0-12.0); Neutrophils # (auto) 6.3 10 ^3/uL (1.6-8.6); Neutrophils % (auto) 74.8 % (37.0-80.0); Platelet Count (auto) 175 10^3/uL (140-450); Red Blood Cells 3.05 10^6/uL (4.0-5.20); Red Cell Distribution Width 15.3 % (11.8-14.3); White Blood Cell 8.5 10^3/uL (4.4-10.8)
[2024-03-21 07:16] LABS: Albumin 2.8 g/dL (3.2-4.8); Alkaline Phosphatase 74 U/L (46-116); Anion Gap 8 (5-15); Aspartate Aminotransferase 13 U/L (13-40); BUN/Creatinine Ratio 18.5 (10.0-20.0); Bilirubin, Total 0.4 mg/dL (0.2-1.0); Blood Urea Nitrogen 48 mg/dL (9-23); Calcium 9.3 mg/dL (8.7-10.4); Carbon Dioxide 18 mmol/L (20-31); Chloride 115 mmol/L (98-107); Glucose 92 mg/dL (74-106); Potassium 4.8 mmol/L (3.5-5.1); Sodium 141 mmol/L (136-145); Total Protein 5.1 g/dL (5.7-8.2)
[2024-03-21 07:26] LABS: Urine Blood Negative /uL (Negative); Urine Clarity Clear (Clear); Urine Color Colorless (Yellow); Urine Protein, UAD TRACE (Negative); Urine Specific Gravity 1.012 (1.001-1.035); Urine Urobilinogen Normal (Negative); Urine WBC 7 /hpf (0 - 5)
[2024-03-21 07:28] LABS: Alanine Aminotransferase < 9 U/L (7-40)
[2024-03-21 07:46] LABS: Creatinine, Urine 47.41 mg/dL (30.0-125.0)
[2024-03-21] MEDS: HYDROcodone-ACET 5/325MG TAB PO PRN (09:24)
[2024-03-22] VITALS (8 sets, daily range): BP systolic 149–189; BP diastolic 42–67; PULSE 55–91; RESP 13–96; TEMP 97.1–98.3; O2SAT 92–98
[2024-03-22 07:45] LABS: Albumin 2.9 g/dL (3.2-4.8); Alkaline Phosphatase 79 U/L (46-116); Anion Gap 8 (5-15); BUN/Creatinine Ratio 21.5 (10.0-20.0); Blood Urea Nitrogen 47 mg/dL (9-23); Calcium 9.3 mg/dL (8.7-10.4); Carbon Dioxide 19 mmol/L (20-31); Chloride 114 mmol/L (98-107); Glucose 86 mg/dL (74-106); Sodium 141 mmol/L (136-145)
[2024-03-22 07:46] LABS: Aspartate Aminotransferase 18 U/L (13-40); Bilirubin, Total 0.3 mg/dL (0.2-1.0); Total Protein 5.2 g/dL (5.7-8.2)
[2024-03-22 07:47] LABS: Alanine Aminotransferase < 9 U/L (7-40)
[2024-03-23] MEDS: cloNIDine HCL 0.1 MG TAB PO ONE (00:03)
[2024-03-23] MEDS: ACETAMINOPHEN 325 MG TAB PO PRN (00:03)
[2024-03-23 00:40] VITALS: BP 166/48; PULSE 68; RESP 16; TEMP 98; O2SAT 92
[2024-03-23 05:00] VITALS: BP 129/60; PULSE 60; RESP 18; TEMP 97.7; O2SAT 95
[2024-03-23 08:00] VITALS: PULSE 58
[2024-03-23 09:00] VITALS: BP 139/59; PULSE 61; RESP 20; TEMP 97.7; O2SAT 95
[2024-03-23] MEDS ORDERED: LEVO500T91 PO (09:46)
[2024-03-23 11:23] VITALS: BP 139/59; PULSE 61; RESP 16; TEMP 97.7; O2SAT 95
[2024-03-23 13:00] VITALS: BP 114/54; PULSE 68; RESP 20; TEMP 98; O2SAT 96
== END 2024-03-23 12:29 | disposition home or self-care (01) | DRG 871 ==
LOC: ER 14:23 → TELE 22:59 → TELE-EAST 03-20 00:58
PROVIDERS: ADMIT Nurse Practitioner Family; ATTEND Family Medicine
DX: A41.9 Sepsis, unspecified organism (principal); I50.43 Acute on chronic combined systolic (congestive) and diastolic (congestive) heart failure; J96.01 Acute respiratory failure with hypoxia; J44.1 Chronic obstructive pulmonary disease with (acute) exacerbation; N17.9 Acute kidney failure, unspecified; I13.0 Hypertensive heart and chronic kidney disease with heart failure and stage 1 through stage 4 chronic kidney disease, or unspecified chronic kidney disease; N18.4 Chronic kidney disease, stage 4 (severe); N30.00 Acute cystitis without hematuria; E44.0 Moderate protein-calorie malnutrition; E87.5 Hyperkalemia; F32.A Depression, unspecified; F17.210 Nicotine dependence, cigarettes, uncomplicated; E89.0 Postprocedural hypothyroidism; E78.00 Pure hypercholesterolemia, unspecified; K27.9 Peptic ulcer, site unspecified, unspecified as acute or chronic, without hemorrhage or perforation; Z85.819 Personal history of malignant neoplasm of unspecified site of lip, oral cavity, and pharynx; Z68.23 Body mass index [BMI] 23.0-23.9, adult
CPT/HCPCS: 36415; 71045; 76775; 80048; 80053; 81001; 82570; 82962; 83880; 84132; 84300; 84443; 84484; 85025; 87040; 87081; 87086; 93005; 94640; 96374; 96375; 99291; G0378; J1815